=== PATIENT | male | born 1990 | race Caucasian/White ===

== ENCOUNTER 2017-08-16 23:02 | Emergency (ER) | payer OTHER ==
[2017-08-17] MEDS ORDERED: IBUPROFEN 600 MG TABLET (FP) PO ONE ×2 (00:11→00:22)
--- NOTE | 2017-08-17 00:12 | PDOC ---
History of Present Illness - General Chief Complaint: Injury Stated Complaint: ANKLE INJURY Time Seen by Provider: 08/16/17 23:52 History Source: Patient - History of Present Illness Initial Comments: 08/17/17 01:29 27-year-old male complaining of right ankle pain and swelling after twisting ankle on an uneven walkway this afternoon.limited range of motion and pain with weightbearing noted. No numbness and tingling to the lower extremity. No past medical history Past History - Past Medical History Allergies/Adverse Reactions: Allergies Allergy/AdvReac Type Severity Reaction Status Date / Time No Known Allergies Allergy Verified 08/17/17 00:09 Home Medications: Ambulatory Orders NK [No Known Home Medication] 08/17/17 - Suicide/Smoking/Psychosocial Hx Smoking History: Current every day smoker Have you smoked in the past 12 months: Yes Number of Cigarettes Smoked Daily: 3 Information on smoking cessation initiated: No Hx Alcohol Use: Yes (Occasi) Drug/Substance Use Hx: No *Physical Exam - Vital Signs Last Vital Signs Temp Pulse Resp BP Pulse Ox 98.2 F 71 18 111/75 98 08/16/17 23:57 08/16/17 23:57 08/16/17 23:57 08/16/17 23:57 08/16/17 23:57 - Physical Exam General Appearance: Yes: Appropriately Dressed Musculoskeletal: positive: Normal Inspection Extremity: positive: Swelling (right ankle swelling limited range of motion) Integumentary: positive: Normal Color, Dry, Warm Neurologic: positive: Fully Oriented, Alert *DC/Admit/Observation/Transfer Diagnosis at time of Disposition: Sprain of right ankle Qualifiers: Encounter type: initial encounter Involved ligament of ankle: unspecified ligament Qualified Code(s): S93.401A - Sprain of unspecified ligament of right ankle, initial encounter; S93.401A - Sprain of unspecified ligament of right ankle, initial encounter - Discharge Dispostion Disposition: HOME Condition at time of disposition: Fair - Referrals Referrals: STAFF,NOT ON [Primary Care Provider] - Toni Torres MD [Staff Physician] - - Patient Instructions Printed Discharge Instructions: Ankle Sprain Additional Instructions: Rest ice compress and elevate. Keep ankle in splint. Use crutches as needed. Follow up with orthopedic doctor as soon as possible. - Post Discharge Activity Forms/Work/School Notes: Back to Work
[2017-08-17 00:16] VITALS: PULSE 71; TEMP 98.2
[2017-08-17 00:29] VITALS: BP 110/77; BMI 29.6
== END 2017-08-17 01:46 | disposition home or self-care (01) ==
LOC: JER 23:02
PROC: 2W3QX1Z Immobilization of Right Lower Leg using Splint (ICD-10-PCS; principal; 2017-08-16)
DX: S93.401A Sprain of unspecified ligament of right ankle, initial encounter (principal); X50.1XXA Overexertion from prolonged static or awkward postures, initial encounter; Y93.01 Activity, walking, marching and hiking; W18.39XA Other fall on same level, initial encounter; Y92.480 Sidewalk as the place of occurrence of the external cause; F17.210 Nicotine dependence, cigarettes, uncomplicated
CPT/HCPCS: 73610-TC-RT; 73630-TC-RT; 99281-25

== ENCOUNTER 2023-02-12 22:59 | Emergency (ER) | payer OTHER ==
[2023-02-12 23:17] VITALS: BMI 30.1
[2023-02-12] MEDS ORDERED: KETOROLAC TROMETHAMINE 30 MG/1 ML VIAL IM ONE (23:40)
[2023-02-12] MEDS ORDERED: ACETAMINOPHEN 325 MG TABLET (FP) PO ONE (23:40)
[2023-02-12] MEDS ORDERED: DEXAMETHASONE LIQUID 0.5 MG/5 ML PO ONE (23:40)
[2023-02-12] MEDS ORDERED: DEXAMETHASONE SOD PHOSPHATE 10 MG/1 ML VIAL ONE (23:52)
[2023-02-12] MEDS ORDERED: ACETAMINOPHEN 325 MG TABLET (FP) ONE (23:52)
[2023-02-12] MEDS ORDERED: KETOROLAC TROMETHAMINE 30 MG/1 ML VIAL ONE (23:52)
[2023-02-13 00:05] LABS: THROAT:GRP A STREP DETECTED (NOTDETECTED)
[2023-02-13] MEDS ORDERED: PENICILLIN G BENZATHINE 1,200,000 UNIT/2 ML PFS IM ONE ×2 (00:18→00:35)
[2023-02-13 00:47] VITALS: BP 153/81; PULSE 99; RESP 18; TEMP 101.5
== END 2023-02-13 00:49 | disposition home or self-care (01) ==
LOC: JER 22:59
PROC: 3E0233Z Introduction of Anti-inflammatory into Muscle, Percutaneous Approach (ICD-10-PCS; principal; 2023-02-12)
PROC: 3E02329 Introduction of Other Anti-infective into Muscle, Percutaneous Approach (ICD-10-PCS; 2023-02-13)
DX: R50.9 Fever, unspecified (principal); R00.0 Tachycardia, unspecified; J02.0 Streptococcal pharyngitis; Z20.822 Contact with and (suspected) exposure to COVID-19
CPT/HCPCS: 0241U-QW; 87651; 99284-25

== ENCOUNTER 2023-10-29 13:32 | Emergency (ER) | payer SELFPAY ==
[2023-10-29 13:37] VITALS: TEMP 98; BMI 31.5
[2023-10-29 16:16] LABS: PH,URINE 5.5 (5.0-8.0); URINE APPEARANCE CLEAR; URINE BILIRUBIN NEGATIVE (NEGATIVE); URINE COLOR YELLOW; URINE GLUCOSE (UA) NEGATIVE (NEGATIVE); URINE KETONE TRACE (NEGATIVE); URINE LEUK ESTERASE NEGATIVE (NEGATIVE); URINE NITRITE NEGATIVE (NEGATIVE); URINE PROTEIN NEGATIVE (NEGATIVE); URINE UROBILINOGEN 0.2 mg/dL (0.2-1.0)
[2023-10-29 16:18] LABS: BASO % 0.6 % (0-2.0); EOS % 3.3 % (0-4.5); HEMATOCRIT 46.1 % (35.4-49); HEMOGLOBIN 15.8 GM/dL (11.7-16.9); LYMPH % 43.6 % (8-40); MCH 30.9 pg (25.7-33.7); MCHC 34.3 g/dl (32.0-35.9); MEAN PLT VOLUME 7.9 fl (7.5-11.1); MONO % 6.1 % (3.8-10.2); NEUT % 46.4 % (42.8-82.8); PLATELET COUNT 284 10^3/uL (134-434); RBC 5.12 M/mm3 (4.00-5.60); RDW 12.8 % (11.9-15.9); WHITE BLOOD COUNT 7.9 K/mm3 (4.0-10.0)
[2023-10-29 16:35] LABS: POTASSIUM 4.1 mmol/L (3.5-5.1)
[2023-10-29 16:37] LABS: BLOOD UREA NITROGEN 21.2 mg/dL (7-18); CALCIUM 8.6 mg/dL (8.5-10.1); MAGNESIUM 2.2 mg/dL (1.8-2.4)
[2023-10-29 16:38] LABS: ALBUMIN 3.5 g/dl (3.4-5.0)
[2023-10-29 16:40] LABS: CREATININE 0.8 mg/dL (0.55-1.3)
[2023-10-29 16:42] LABS: BILIRUBIN,TOTAL 0.5 mg/dL (0.2-1)
[2023-10-29 17:20] VITALS: BP 131/78; PULSE 84; RESP 18
[2023-10-29 17:32] LABS: HIV INTERPRETATION NEGATIVE (NEGATIVE)
== END 2023-10-29 17:20 | disposition home or self-care (01) ==
LOC: JER 13:32
DX: R07.89 Other chest pain (principal); R00.2 Palpitations; Z20.822 Contact with and (suspected) exposure to COVID-19
CPT/HCPCS: 0241U-QW; 36415; 71045-TC-FY; 80053; 81003; 83735; 84484; 85025; 86780; 87086; 87389; 87491; 87591; 93005; 93010; 99285-25

== ENCOUNTER 2023-11-05 13:52 | Emergency (ER) | payer SELFPAY ==
[2023-11-05 14:13] VITALS: BP 130/74; PULSE 85; RESP 18; TEMP 98.2; BMI 30.1
[2023-11-05] MEDS ORDERED: SODIUM CHLORIDE 0.9% 500 ML INFUS.BAG IV ONE (15:11)
[2023-11-05 15:35] LABS: BASO % 0.6 % (0-2.0); EOS % 2.9 % (0-4.5); HEMATOCRIT 46.7 % (35.4-49); LYMPH % 32.4 % (8-40); MCH 31.3 pg (25.7-33.7); MCHC 34.4 g/dl (32.0-35.9); MEAN CELL VOLUME 90.9 fl (80-96); MEAN PLT VOLUME 7.8 fl (7.5-11.1); MONO % 4.5 % (3.8-10.2); NEUT % 59.6 % (42.8-82.8); PLATELET COUNT 269 10^3/uL (134-434); RBC 5.13 M/mm3 (4.00-5.60); RDW 12.9 % (11.9-15.9); WHITE BLOOD COUNT 9.5 K/mm3 (4.0-10.0)
[2023-11-05 15:47] LABS: EPI CELLS 3 /uL (0-25.1); HYALINE CASTS 1 /uL (0-3.1); PH,URINE 5.5 (5.0-8.0); URINE APPEARANCE CLEAR; URINE BACTERIA 6 /uL (0-1359); URINE BILIRUBIN NEGATIVE (NEGATIVE); URINE COLOR YELLOW; URINE GLUCOSE (UA) NEGATIVE (NEGATIVE); URINE KETONE NEGATIVE (NEGATIVE); URINE LEUK ESTERASE TRACE (NEGATIVE); URINE NITRITE NEGATIVE (NEGATIVE); URINE PROTEIN NEGATIVE (NEGATIVE); URINE RBC 12 /uL (0-23.9); URINE UROBILINOGEN 0.2 mg/dL (0.2-1.0); URINE WBC 25 /uL (0-25.8)
[2023-11-05 15:54] LABS: POTASSIUM 4.2 mmol/L (3.5-5.1)
[2023-11-05 15:56] LABS: CALCIUM 8.9 mg/dL (8.5-10.1)
[2023-11-05 15:57] LABS: ALBUMIN 3.8 g/dl (3.4-5.0); BLOOD UREA NITROGEN 18.3 mg/dL (7-18); MAGNESIUM 2.4 mg/dL (1.8-2.4)
[2023-11-05 16:00] LABS: CREATININE 0.9 mg/dL (0.55-1.3)
[2023-11-05 16:01] LABS: BILIRUBIN,TOTAL 0.4 mg/dL (0.2-1)
[2023-11-05 16:02] LABS: TOT PROT 7.4 g/dl (6.4-8.2)
== END 2023-11-05 18:32 | disposition home or self-care (01) ==
LOC: JER 13:52
DX: R55 Syncope and collapse (principal); R42 Dizziness and giddiness; H53.8 Other visual disturbances
CPT/HCPCS: 36415; 70450-TC; 80053; 81003; 82550; 83735; 84439; 84443; 84484; 85025; 93005; 93010; 99285-25